=== PATIENT | female | born 1980 | race Caucasian/White ===

== ENCOUNTER 2016-05-09 02:03 | Emergency (ER) | payer OTHER ==
[2016-05-09] MEDS ORDERED: LORAZEPAM 1 MG TABLET ONE (02:26)
== END 2016-05-09 03:14 | disposition home or self-care (01) ==
LOC: ED 02:03
DX: F41.9 Anxiety disorder, unspecified (principal); F17.210 Nicotine dependence, cigarettes, uncomplicated
CPT/HCPCS: 99283 ×2; A9270

== ENCOUNTER 2016-05-12 01:56 | Emergency (ER) | payer OTHER ==
[2016-05-12] MEDS ORDERED: LORAZEPAM 1 MG TABLET ONE (02:27)
== END 2016-05-12 02:54 | disposition home or self-care (01) ==
LOC: ED 01:56
DX: F41.1 Generalized anxiety disorder (principal); R07.9 Chest pain, unspecified; R06.02 Shortness of breath; F17.210 Nicotine dependence, cigarettes, uncomplicated
CPT/HCPCS: 99282; 93005; 99283; A9270

== ENCOUNTER 2016-06-09 20:50 | Emergency (ER) | payer OTHER ==
[2016-06-09 21:46] LABS: URINE BILIRUBIN NEGATIVE (NEGATIVE); URINE BLOOD NEGATIVE (NEGATIVE); URINE GLUCOSE (UA) NEGATIVE (NEGATIVE); URINE LEUKOCYTE ESTERASE NEGATIVE (NEGATIVE); URINE NITRITE NEGATIVE (NEGATIVE); URINE PROTEIN NEGATIVE (NEGATIVE); URINE UROBILINOGEN NORMAL (0-1 mg/dl)
[2016-06-09 21:48] LABS: URINE APPEARANCE CLEAR; URINE COLOR LIGHT YELLOW
[2016-06-09 22:01] LABS: AMPHETAMINES/METHAMPHETAMINES NEGATIVE (NEGATIVE); COCAINE NEGATIVE (NEGATIVE); METHADONE NEGATIVE (NEGATIVE)
[2016-06-09 22:02] LABS: MARIJUANA NEGATIVE (NEGATIVE); OPIATES NEGATIVE (NEGATIVE); TRICYCLIC ANTIDEPRESSANTS NEGATIVE (NEGATIVE)
--- NOTE | 2016-06-09 22:31 | CT ---
Name: MAXIMO LEE Exam: Noncontrast renal stone CT Comparison: None Clinical History: Left flank pain Procedure: Helical CT using multidetector technique was applied to the abdomen and pelvis without contrast. Sagittal, axial and coronal reconstructions were obtained. An automated dose reduction technique was used to minimize patient radiation dose. Findings: CT abdomen (noncontrast): Lung bases are clear. Heart is nonenlarged. There is no pericardial effusion. Fatty changes liver are identified. Gallbladder surgically absent. There is no suspicious biliary dilation. Pancreas, spleen, adrenal glands, aorta, IVC and portal vein are normal. There are 2 punctate nonobstructing calculi at the inferior pole of the right kidney. There is no hydronephrosis. Stomach, small bowel and colon are within normal limits. There is no free air, free fluid or suspicious adenopathy. Regional skeleton is within normal limits. CT pelvis (noncontrast): Bladder is partially filled. Normal uterus is not identified. Adnexa are symmetric. The cecum lies deep within the right hemipelvis. The appendix is not identified.. Small bowel and colon are normal. There is no free air, free fluid or suspicious adenopathy. Multiple venous vascular calcifications are identified Impression: 1. 2 punctate nonobstructing calculi in the inferior pole of the right kidney 2. No left sided calculus or obstruction 3. Nonvisualization of the appendix 4. Nonvisualization of the uterus. The adnexa are symmetric. 5. Fatty changes of liver Note: The above report was uploaded to [facility]'s electronic medical records system at 2225 hours.
[2016-06-09] MEDS ORDERED: ONDANSETRON 4 MG ODT TAB ONE (23:02)
[2016-06-09] MEDS ORDERED: OXYCODONE HCL 5 MG TABLET ONE (23:08)
== END 2016-06-09 23:18 | disposition home or self-care (01) ==
LOC: ED 20:50
DX: R10.9 Unspecified abdominal pain (principal); R11.2 Nausea with vomiting, unspecified; Z87.442 Personal history of urinary calculi
CPT/HCPCS: 80305; 81003; 74176; 99283 ×2; A9270 ×2